=== PATIENT | female | born 1990 | race Caucasian/White ===

== ENCOUNTER 2016-05-14 12:17 | Emergency (ER) | payer MEDICAID ==
[2016-05-14 13:31] LABS: BASOPHILS 0.2 % (0.0-2.0); EOSINOPHILS 3.4 % (0-7); HEMATOCRIT 42.7 % (36.0-48.0); HEMOGLOBIN 14.6 g/dL (12-16); IMMATURE GRANULOCYTES 0.5 % (0-5); LYMPHOCYTES 51.4 % (15-50); MCH 32.4 pg (26.0-34.0); MCHC 34.2 g/dL (31.0-37.0); MCV 94.7 fL (80.0-100.0); MEAN PLATELET VOLUME 11.9 fL (7.4-10.4); MONOCYTES 4.9 % (2-11); NEUTROPHILS 39.6 % (40-80); PLATELET COUNT 181 10x3/uL (130-400); RBC 4.51 10x6/uL (4.00-5.40); RDW 13.6 % (11.5-14.5)
[2016-05-14 13:45] LABS: APPEARANCE HAZY (CLEAR); BILIRUBIN NEGATIVE (NEGATIVE); COLOR YELLOW (YELLOW); GLUCOSE NEGATIVE (NEGATIVE); KETONE NEGATIVE (NEGATIVE); LEUKOCYTE ESTERASE 1+ (NEGATIVE); NITRITE POSITIVE (NEGATIVE); PROTEIN NEGATIVE (NEGATIVE); UROBILINOGEN NORMAL (NORMAL)
[2016-05-14 13:46] LABS: BACTERIA MANY /hpf (NONE SEEN); MUCUS <1+ /lpf (NONE SEEN)
[2016-05-14 13:47] LABS: HCG SERUM NEGATIVE (NEGATIVE)
[2016-05-14 13:53] LABS: ALBUMIN 3.8 g/dL (3.4-5.0); ALKALINE PHOSPHATASE 67 U/L (46-116); ALT (SGPT) 20 U/L (10-68); AMYLASE - SERUM 54 U/L (25-115); BILIRUBIN - TOTAL 0.35 mg/dL (0.2-1.3); CALC OSMOLALITY 281 mosm/kg (275-300); CALCIUM 8.7 mg/dL (8.5-10.1); CARBON DIOXIDE 27.3 mmol/L (21.0-32.0); CHLORIDE - SERUM 108 mmol/L (98-107); CREATININE - SERUM 0.7 mg/dL (0.6-1.3); GLUCOSE 79 mg/dL (74-106); LIPASE 180 U/L (73-393); PROTEIN - SERUM 6.5 g/dL (6.4-8.2); SODIUM 143 mmol/L (136-145); UREA NITROGEN 6 mg/dL (7-18); eGFR NON AFRICAN AMERICAN > 90 mL/min (90-120)
== END 2016-05-14 16:50 | disposition home or self-care (01) ==
LOC: D.ER 12:17
PROVIDERS: Family Medicine
DX: R10.9 Unspecified abdominal pain (principal); N12 Tubulo-interstitial nephritis, not specified as acute or chronic; R11.0 Nausea; F17.200 Nicotine dependence, unspecified, uncomplicated

== ENCOUNTER 2016-07-25 11:27 | Emergency (ER) | payer MEDICAID ==
[2016-07-25 12:05] LABS: HCG URINE POSITIVE (NEGATIVE)
[2016-07-25 12:27] LABS: APPEARANCE HAZY (CLEAR); BACTERIA MODERATE /hpf (NONE SEEN); BILIRUBIN NEGATIVE (NEGATIVE); COLOR YELLOW (YELLOW); EPITHELIAL CELLS 0-5 /hpf (0-5); GLUCOSE NEGATIVE (NEGATIVE); GRANULAR CAST NONE SEEN /lpf (NONE SEEN); HYALINE CAST NONE SEEN /lpf (NONE SEEN); KETONE NEGATIVE (NEGATIVE); LEUKOCYTE ESTERASE 2+ (NEGATIVE); MUCUS >1+ /lpf (NONE SEEN); NITRITE NEGATIVE (NEGATIVE); PH 7.5 (5.0-6.0); PROTEIN 1+ mg/dL (NEGATIVE); RED CELL CAST NONE SEEN /lpf (NONE SEEN); RED CELLS - URINE OCC /hpf (0-5); SPECIFIC GRAVITY 1.005 (1.005-1.020); SPERMATOZOA NONE SEEN /hpf (NONE SEEN); UROBILINOGEN NORMAL (NORMAL); WHITE CELLS - URINE 0-5 /hpf (0-5); YEAST NONE SEEN /hpf (NONE SEEN)
[2016-07-25 12:28] LABS: AMORPHOUS SEDIMENT >1+ /lpf (NONE SEEN); WAXY CAST NONE SEEN /lpf (NONE SEEN)
[2016-07-25 12:42] LABS: BASOPHILS 0.4 % (0-2); EOSINOPHILS 1.8 % (0-7); HEMATOCRIT 44.5 % (36.0-48.0); HEMOGLOBIN 15.3 g/dL (12-16); IMMATURE GRANULOCYTES 0.4 % (0-5); LYMPHOCYTES 23.5 % (15-50); MCH 31.5 pg (26.0-34.0); MCHC 34.4 g/dL (31.0-37.0); MCV 91.6 fL (80.0-100.0); MEAN PLATELET VOLUME 10.7 fL (7.4-10.4); MONOCYTES 5.6 % (2-11); NEUTROPHILS 68.3 % (40-80); PLATELET COUNT 226 10x3/uL (130-400); RBC 4.86 10x6/uL (4.00-5.40); RDW 12.6 % (11.5-14.5); WBC 8.2 10x3/uL (4.8-10.8)
[2016-07-25 12:57] LABS: ALBUMIN 3.9 g/dL (3.4-5.0); ALKALINE PHOSPHATASE 77 U/L (46-116); ALT (SGPT) 18 U/L (10-68); BILIRUBIN - TOTAL 0.38 mg/dL (0.2-1.3); CALC OSMOLALITY 273 mosm/kg (275-300); CALCIUM 8.5 mg/dL (8.5-10.1); CARBON DIOXIDE 28.4 mmol/L (21.0-32.0); CHLORIDE - SERUM 103 mmol/L (98-107); CREATININE - SERUM 0.6 mg/dL (0.6-1.3); GLUCOSE 95 mg/dL (74-106); POTASSIUM - SERUM 3.6 mmol/L (3.5-5.1); PROTEIN - SERUM 7.5 g/dL (6.4-8.2); SODIUM 138 mmol/L (136-145); UREA NITROGEN 6 mg/dL (7-18); eGFR NON AFRICAN AMERICAN > 90 mL/min (90-120)
[2016-07-25 13:20] LABS: HCG - QUANTITATIVE (MATERNAL) 1192 mIU/mL
[2016-07-25 15:27] LABS: UDS - AMPHET NEGATIVE QUAL (NEGATIVE); UDS - BARB NEGATIVE QUAL (NEGATIVE); UDS - BENZO NEGATIVE QUAL (NEGATIVE); UDS - COCAINE NEGATIVE QUAL (NEGATIVE); UDS - METH NEGATIVE QUAL (NEGATIVE); UDS - OPIATE NEGATIVE QUAL (NEGATIVE); UDS - PCP NEGATIVE QUAL (NEGATIVE); UDS - THC POSITIVE QUAL (NEGATIVE)
== END 2016-07-25 13:28 | disposition home or self-care (01) ==
LOC: D.ER 11:27
PROVIDERS: Family Medicine
DX: S16.1XXA Strain of muscle, fascia and tendon at neck level, initial encounter (principal); X58.XXXA Exposure to other specified factors, initial encounter; Y93.89 Activity, other specified; Y92.019 Unspecified place in single-family (private) house as the place of occurrence of the external cause; O02.81 Inappropriate change in quantitative human chorionic gonadotropin (hCG) in early pregnancy

== ENCOUNTER 2016-09-26 10:42 | Emergency (ER) | payer MEDICAID ==
[2016-09-26 13:00] LABS: BASOPHILS 0.4 % (0-2); EOSINOPHILS 4.5 % (0-7); HEMATOCRIT 48.7 % (36.0-48.0); HEMOGLOBIN 16.5 g/dL (12-16); IMMATURE GRANULOCYTES 0.4 % (0-5); LYMPHOCYTES 31.7 % (15-50); MCH 32.3 pg (26.0-34.0); MCHC 33.9 g/dL (31.0-37.0); MCV 95.3 fL (80.0-100.0); MEAN PLATELET VOLUME 11.7 fL (7.4-10.4); MONOCYTES 6.2 % (2-11); NEUTROPHILS 56.8 % (40-80); PLATELET COUNT 203 10x3/uL (130-400); RBC 5.11 10x6/uL (4.00-5.40); RDW 13.6 % (11.5-14.5); WBC 7.7 10x3/uL (4.8-10.8)
[2016-09-26 13:06] LABS: APPEARANCE HAZY (CLEAR); BILIRUBIN NEGATIVE (NEGATIVE); COLOR YELLOW (YELLOW); GLUCOSE NEGATIVE (NEGATIVE); KETONE NEGATIVE (NEGATIVE); LEUKOCYTE ESTERASE 2+ (NEGATIVE); NITRITE NEGATIVE (NEGATIVE); PROTEIN NEGATIVE (NEGATIVE); UROBILINOGEN NORMAL (NORMAL)
[2016-09-26 13:14] LABS: BACTERIA MODERATE /hpf (NONE SEEN); RED CELLS - URINE 0-5 /hpf (0-5); WHITE CELLS - URINE 25-50 /hpf (0-5)
[2016-09-26 13:15] LABS: ALBUMIN 4.5 g/dL (3.4-5.0); ALKALINE PHOSPHATASE 69 U/L (46-116); ALT (SGPT) 21 U/L (10-68); BILIRUBIN - TOTAL 0.54 mg/dL (0.2-1.3); CALC OSMOLALITY 269 mosm/kg (275-300); CALCIUM 9.3 mg/dL (8.5-10.1); CARBON DIOXIDE 27.1 mmol/L (21.0-32.0); CHLORIDE - SERUM 103 mmol/L (98-107); CREATININE - SERUM 0.8 mg/dL (0.6-1.3); GLUCOSE 88 mg/dL (74-106); POTASSIUM - SERUM 4.2 mmol/L (3.5-5.1); PROTEIN - SERUM 8.1 g/dL (6.4-8.2); SODIUM 136 mmol/L (136-145); UREA NITROGEN 9 mg/dL (7-18); eGFR NON AFRICAN AMERICAN > 90 mL/min (90-120)
[2016-09-26 13:22] LABS: HCG - QUANTITATIVE (MATERNAL) 2 mIU/mL
== END 2016-09-26 15:49 | disposition home or self-care (01) ==
LOC: D.ER 10:42
PROVIDERS: Emergency Medicine
DX: N39.0 Urinary tract infection, site not specified (principal); R10.2 Pelvic and perineal pain; F17.200 Nicotine dependence, unspecified, uncomplicated

== ENCOUNTER 2016-12-23 10:06 | Emergency (ER) | payer MEDICAID ==
[2016-12-23 12:09] LABS: BASOPHILS 0.1 % (0-2); EOSINOPHILS 2.9 % (0-7); HEMATOCRIT 42.7 % (36.0-48.0); IMMATURE GRANULOCYTES 0.3 % (0-5); LYMPHOCYTES 26.4 % (15-50); MCHC 35.1 g/dL (31.0-37.0); MCV 93.8 fL (80.0-100.0); MEAN PLATELET VOLUME 11.7 fL (7.4-10.4); NEUTROPHILS 65.3 % (40-80); PLATELET COUNT 181 10x3/uL (130-400); RBC 4.55 10x6/uL (4.00-5.40); RDW 12.7 % (11.5-14.5); WBC 7.3 10x3/uL (4.8-10.8)
[2016-12-23 12:40] LABS: APPEARANCE HAZY (CLEAR); BACTERIA MANY /hpf (NONE SEEN); BILIRUBIN NEGATIVE (NEGATIVE); COLOR YELLOW (YELLOW); EPITHELIAL CELLS 0-5 /hpf (0-5); GLUCOSE NEGATIVE (NEGATIVE); KETONE NEGATIVE (NEGATIVE); LEUKOCYTE ESTERASE 2+ (NEGATIVE); MUCUS <1+ /lpf (NONE SEEN); NITRITE NEGATIVE (NEGATIVE); PROTEIN NEGATIVE (NEGATIVE); RED CELLS - URINE RARE /hpf (0-5); SPECIFIC GRAVITY 1.005 (1.005-1.020); UROBILINOGEN NORMAL (NORMAL); WHITE CELLS - URINE 0-5 /hpf (0-5)
== END 2016-12-23 15:29 | disposition home or self-care (01) ==
LOC: D.ER 10:06
PROVIDERS: Emergency Medicine
DX: A59.9 Trichomoniasis, unspecified (principal); F17.200 Nicotine dependence, unspecified, uncomplicated

== ENCOUNTER 2017-01-03 11:39 | Emergency (ER) | payer MEDICAID | END 2017-01-03 15:59 | disposition home or self-care (01) | LOC: D.ER 11:39 | DX: M54.12 Radiculopathy, cervical region (principal); F17.200 Nicotine dependence, unspecified, uncomplicated ==

== ENCOUNTER 2018-01-25 17:14 | Emergency (ER) | payer MEDICAID ==
[~2018-01-25] VITALS: Ht 162.6 cm; Wt 59.1 kg
[2018-01-25 17:18] VITALS: Ht 162.6 cm; Wt 59.1 kg
[2018-01-25 19:15] LABS: BASOPHILS 0.2 % (0-2); EOSINOPHILS 1.3 % (0-7); IMMATURE GRANULOCYTES 0.4 % (0-5); LYMPHOCYTES 22.8 % (15-50); MCH 32.8 pg (26.0-34.0); MCHC 35.9 g/dL (31.0-37.0); MCV 91.3 fL (80.0-100.0); MEAN PLATELET VOLUME 11.3 fL (7.4-10.4); MONOCYTES 5.2 % (2-11); NEUTROPHILS 70.1 % (40-80); PLATELET COUNT 204 10x3/uL (130-400); RBC 4.27 10x6/uL (4.00-5.40); RDW 12.9 % (11.5-14.5)
[2018-01-25 19:43] LABS: APPEARANCE CLEAR (CLEAR); BILIRUBIN NEGATIVE (NEGATIVE); COLOR YELLOW (YELLOW); GLUCOSE NEGATIVE (NEGATIVE); KETONE MODERATE mg/dL (NEGATIVE); NITRITE NEGATIVE (NEGATIVE); PROTEIN NEGATIVE (NEGATIVE); SPECIFIC GRAVITY 1.015 (1.005-1.020); UROBILINOGEN NORMAL (NORMAL)
[2018-01-25 19:45] LABS: ALBUMIN 3.7 g/dL (3.4-5.0); ALKALINE PHOSPHATASE 54 U/L (46-116); ALT (SGPT) 19 U/L (10-68); CALC OSMOLALITY 271 mosm/kg (275-300); CALCIUM 8.4 mg/dL (8.5-10.1); CARBON DIOXIDE 25.1 mmol/L (21.0-32.0); CHLORIDE - SERUM 104 mmol/L (98-107); CREATININE - SERUM 0.6 mg/dL (0.6-1.3); GLUCOSE 85 mg/dL (74-106); POTASSIUM - SERUM 3.5 mmol/L (3.5-5.1); PROTEIN - SERUM 6.9 g/dL (6.4-8.2); SODIUM 138 mmol/L (136-145); UREA NITROGEN 3 mg/dL (7-18); eGFR NON AFRICAN AMERICAN > 90 mL/min (90-120)
[2018-01-25 20:08] LABS: HCG - QUANTITATIVE (MATERNAL) 78060 mIU/mL
[2018-01-25] MEDS ORDERED: ZOFRAN ODT4 MG/UDTAB PO (20:55)
[2018-01-25 21:31] VITALS: BP 114/73
== END 2018-01-25 21:34 | disposition home or self-care (01) ==
LOC: D.ER 17:14
PROVIDERS: Emergency Medicine
DX: O21.9 Vomiting of pregnancy, unspecified (principal); Z3A.08 8 weeks gestation of pregnancy; F41.9 Anxiety disorder, unspecified; E86.0 Dehydration

== ENCOUNTER → 2018-03-26 13:07 | Outpatient (CLI) | payer MEDICAID ==
[2018-01-25 17:18] VITALS: BMI 22.3
[~2018-03-26 13:07] MED LIST: ZOFRAN ODT4 MG/UDTAB PO
== END | disposition home or self-care (01) ==
LOC: D.LDO 13:07
DX: O26.892 Other specified pregnancy related conditions, second trimester (principal); Z3A.17 17 weeks gestation of pregnancy; W01.0XXA Fall on same level from slipping, tripping and stumbling without subsequent striking against object, initial encounter; Y93.89 Activity, other specified; Y92.019 Unspecified place in single-family (private) house as the place of occurrence of the external cause; R10.9 Unspecified abdominal pain; M25.552 Pain in left hip

== ENCOUNTER 2018-04-18 17:51 | Outpatient (CLI) | payer MEDICAID ==
[2018-01-25 17:18] VITALS: BMI 22.3
[2018-04-18 19:52] LABS: APPEARANCE CLEAR (CLEAR); BILIRUBIN NEGATIVE (NEGATIVE); COLOR YELLOW (YELLOW); GLUCOSE NEGATIVE (NEGATIVE); KETONE NEGATIVE (NEGATIVE); NITRITE NEGATIVE (NEGATIVE); PROTEIN NEGATIVE (NEGATIVE); SPECIFIC GRAVITY 1.025 (1.005-1.020); UROBILINOGEN NORMAL (NORMAL)
[2018-04-18 19:53] LABS: BACTERIA MANY /hpf (NONE SEEN); RED CELLS - URINE OCC /hpf (0-5); WHITE CELLS - URINE 0-5 /hpf (0-5)
[2018-04-18 20:03] LABS: UDS - AMPHET NEGATIVE QUAL (NEGATIVE); UDS - BARB NEGATIVE QUAL (NEGATIVE); UDS - BENZO NEGATIVE QUAL (NEGATIVE); UDS - COCAINE NEGATIVE QUAL (NEGATIVE); UDS - OPIATE NEGATIVE QUAL (NEGATIVE); UDS - PCP NEGATIVE QUAL (NEGATIVE); UDS - THC POSITIVE QUAL (NEGATIVE)
== END 2018-04-18 20:48 | disposition home or self-care (01) ==
LOC: D.LABREF 17:51
PROVIDERS: Obstetrics & Gynecology
DX: O26.892 Other specified pregnancy related conditions, second trimester (principal); Z3A.21 21 weeks gestation of pregnancy

== ENCOUNTER → 2018-05-19 17:19 | Outpatient (CLI) | payer MEDICAID ==
[2018-01-25 17:18] VITALS: BMI 22.3
[2018-05-19 18:00] LABS: APPEARANCE CLEAR (CLEAR); BILIRUBIN NEGATIVE (NEGATIVE); COLOR YELLOW (YELLOW); GLUCOSE NEGATIVE (NEGATIVE); KETONE MODERATE mg/dL (NEGATIVE); NITRITE NEGATIVE (NEGATIVE); PROTEIN NEGATIVE (NEGATIVE); SPECIFIC GRAVITY 1.015 (1.005-1.020); UROBILINOGEN NORMAL (NORMAL)
[2018-05-19 18:07] LABS: BASOPHILS 0.2 % (0-2); HEMATOCRIT 36.3 % (36.0-48.0); HEMOGLOBIN 12.7 g/dL (12-16); MCH 32.6 pg (26.0-34.0); MCV 93.1 fL (80.0-100.0); MONOCYTES 6.7 % (2-11); NEUTROPHILS 71.1 % (40-80); PLATELET COUNT 196 10x3/uL (130-400); RDW 12.9 % (11.5-14.5); WBC 9.1 10x3/uL (4.8-10.8)
== END | disposition home or self-care (01) ==
LOC: D.LDO 17:19
PROVIDERS: Obstetrics & Gynecology
DX: O26.899 Other specified pregnancy related conditions, unspecified trimester (principal); Z3A.00 Weeks of gestation of pregnancy not specified

== ENCOUNTER 2018-07-10 22:41 | Observation (INO) | payer MEDICAID ==
[2018-01-25 17:18] VITALS: BMI 22.3
[2018-07-11 00:11] LABS: INR 0.94 (0.85-1.17); PROTIME 12.1 SECONDS (11.6-15.0)
[2018-07-11 00:13] LABS: D-DIMER-QUANTITATIVE 0.56 ug/mLFEU (0.20-0.54)
[2018-07-11 00:18] LABS: UDS - AMPHET NEGATIVE QUAL (NEGATIVE); UDS - BARB NEGATIVE QUAL (NEGATIVE); UDS - BENZO NEGATIVE QUAL (NEGATIVE); UDS - COCAINE NEGATIVE QUAL (NEGATIVE); UDS - OPIATE NEGATIVE QUAL (NEGATIVE); UDS - PCP NEGATIVE QUAL (NEGATIVE); UDS - THC POSITIVE QUAL (NEGATIVE)
[2018-07-11 00:46] LABS: BASOPHILS 0.3 % (0-2); EOSINOPHILS 2.2 % (0-7); HEMATOCRIT 34.2 % (36.0-48.0); HEMOGLOBIN 11.8 g/dL (12-16); IMMATURE GRANULOCYTES 1.3 % (0-5); LYMPHOCYTES 22.9 % (15-50); MCH 32.2 pg (26.0-34.0); MCHC 34.5 g/dL (31.0-37.0); MCV 93.2 fL (80.0-100.0); MEAN PLATELET VOLUME 11.8 fL (7.4-10.4); MONOCYTES 6.9 % (2-11); NEUTROPHILS 66.4 % (40-80); PLATELET COUNT 187 10x3/uL (130-400); RBC 3.67 10x6/uL (4.00-5.40); RDW 13.1 % (11.5-14.5); WBC 9.6 10x3/uL (4.8-10.8)
[2018-07-11 00:48] LABS: APPEARANCE HAZY (CLEAR); BILIRUBIN NEGATIVE (NEGATIVE); COLOR YELLOW (YELLOW); GLUCOSE NEGATIVE (NEGATIVE); KETONE NEGATIVE (NEGATIVE); NITRITE NEGATIVE (NEGATIVE); PROTEIN NEGATIVE (NEGATIVE); SPECIFIC GRAVITY 1.015 (1.005-1.020); UROBILINOGEN NORMAL (NORMAL); WHITE CELLS - URINE RARE /hpf (0-5)
[2018-07-11 00:49] LABS: BACTERIA FEW /hpf (NONE SEEN); EPITHELIAL CELLS OCC /hpf (0-5)
== END 2018-07-11 02:47 | disposition home or self-care (01) ==
LOC: D.LD 22:41 → OBSVTIME 22:45 → D.LD 07-11 02:47
PROVIDERS: ADMIT Obstetrics & Gynecology; ATTEND Obstetrics & Gynecology
DX: O46.8X3 Other antepartum hemorrhage, third trimester (principal); Z3A.35 35 weeks gestation of pregnancy; O35.8XX0 Maternal care for other (suspected) fetal abnormality and damage, not applicable or unspecified

== ENCOUNTER → 2018-08-09 17:51 | Outpatient (CLI) | payer MEDICAID ==
[2018-01-25 17:18] VITALS: BMI 22.3
[2018-08-09 18:11] LABS: APPEARANCE CLEAR (CLEAR); BILIRUBIN NEGATIVE (NEGATIVE); COLOR YELLOW (YELLOW); GLUCOSE NEGATIVE (NEGATIVE); KETONE MODERATE mg/dL (NEGATIVE); NITRITE NEGATIVE (NEGATIVE); PROTEIN NEGATIVE (NEGATIVE); SPECIFIC GRAVITY 1.015 (1.005-1.020); UROBILINOGEN NORMAL (NORMAL)
[2018-08-09 21:29] LABS: APPEARANCE CLEAR (CLEAR); COLOR YELLOW (YELLOW); NITRITE NEGATIVE (NEGATIVE); PROTEIN NEGATIVE (NEGATIVE); SPECIFIC GRAVITY 1.015 (1.005-1.020)
[2018-08-09 21:31] LABS: BILIRUBIN NEGATIVE (NEGATIVE); GLUCOSE 1000 mg/dL (NEGATIVE); KETONE NEGATIVE (NEGATIVE); UROBILINOGEN NORMAL (NORMAL)
== END | disposition home or self-care (01) ==
LOC: D.LDO 17:51
PROVIDERS: Obstetrics & Gynecology; ATTEND Obstetrics & Gynecology
DX: O26.899 Other specified pregnancy related conditions, unspecified trimester (principal); Z3A.00 Weeks of gestation of pregnancy not specified

== ENCOUNTER 2018-08-25 19:59 | Inpatient (IN) | payer MEDICAID ==
[~2018-08-25] VITALS: Ht 162.6 cm; Wt 68.6 kg
[2018-08-25] MEDS ORDERED: VALTREX500 MG PO (20:50)
[2018-08-25 20:53] LABS: HEMATOCRIT 35.2 % (36.0-48.0); HEMOGLOBIN 12.2 g/dL (12-16); MCH 31.4 pg (26.0-34.0); MCHC 34.7 g/dL (31.0-37.0); MCV 90.5 fL (80.0-100.0); RBC 3.89 10x6/uL (4.00-5.40); RDW 12.6 % (11.5-14.5); WBC 13.3 10x3/uL (4.8-10.8)
[2018-08-25 21:20] LABS: UDS - AMPHET NEGATIVE QUAL (NEGATIVE); UDS - BARB NEGATIVE QUAL (NEGATIVE); UDS - BENZO NEGATIVE QUAL (NEGATIVE); UDS - COCAINE NEGATIVE QUAL (NEGATIVE); UDS - OPIATE NEGATIVE QUAL (NEGATIVE); UDS - PCP NEGATIVE QUAL (NEGATIVE); UDS - THC NEGATIVE QUAL (NEGATIVE)
[2018-08-25 21:33] VITALS: BP 138/78; Ht 162.6 cm; Wt 68.6 kg
[2018-08-27 07:30] VITALS: BP 130/78
[2018-08-27 16:11] VITALS: BP 133/81
[2018-08-27 19:37] VITALS: BP 141/79
[2018-08-28] MEDS ORDERED: CELEXA20 MG PO (07:41)
[2018-08-28] MEDS ORDERED: XANAX0.5 MG PO (07:41)
[2018-08-28 08:00] VITALS: BP 145/85
== END 2018-08-28 08:11 | disposition home or self-care (01) | DRG 807 ==
LOC: D.LD 19:59
PROVIDERS: ADMIT Obstetrics & Gynecology; ATTEND Obstetrics & Gynecology
PROC: 3E033VJ Introduction of Other Hormone into Peripheral Vein, Percutaneous Approach (ICD-10-PCS; 2018-08-25)
PROC: 10E0XZZ Delivery of Products of Conception, External Approach (ICD-10-PCS; principal; 2018-08-26)
PROC: 0HQ9XZZ Repair Perineum Skin, External Approach (ICD-10-PCS; 2018-08-26)
DX: O99.824 Streptococcus B carrier state complicating childbirth (principal); Z37.0 Single live birth; Z3A.39 39 weeks gestation of pregnancy; O70.0 First degree perineal laceration during delivery; O99.334 Smoking (tobacco) complicating childbirth; O99.344 Other mental disorders complicating childbirth; F32.9 Major depressive disorder, single episode, unspecified; F41.9 Anxiety disorder, unspecified

== ENCOUNTER 2019-07-18 09:54 | Day surgery (SDC) | payer MEDICAID ==
[2019-07-17 11:58] LABS: BASOPHILS 0.3 % (0-2); EOSINOPHILS 6.8 % (0-7); HEMATOCRIT 41.2 % (36.0-48.0); HEMOGLOBIN 13.1 g/dL (12-16); IMMATURE GRANULOCYTES 0.3 % (0-5); LYMPHOCYTES 38.3 % (15-50); MCH 31.7 pg (26.0-34.0); MCHC 31.8 g/dL (31.0-37.0); MCV 99.8 fL (80.0-100.0); MEAN PLATELET VOLUME 11.2 fL (7.4-10.4); MONOCYTES 5.8 % (2-11); NEUTROPHILS 48.5 % (40-80); PLATELET COUNT 230 10x3/uL (130-400); RBC 4.13 10x6/uL (4.00-5.40); RDW 13.8 % (11.5-14.5); WBC 6.8 10x3/uL (4.8-10.8)
[2019-07-17 12:13] LABS: CALC OSMOLALITY 276 mosm/kg (275-300); CALCIUM 7.8 mg/dL (8.5-10.1); CARBON DIOXIDE 28.1 mmol/L (21.0-32.0); CHLORIDE - SERUM 107 mmol/L (98-107); CREATININE - SERUM 0.7 mg/dL (0.6-1.3); GLUCOSE 77 mg/dL (74-106); POTASSIUM - SERUM 4.7 mmol/L (3.5-5.1); SODIUM 139 mmol/L (136-145); UREA NITROGEN 13 mg/dL (7-18); eGFR NON AFRICAN AMERICAN > 90 mL/min (90-120)
[2019-07-17 12:18] LABS: UDS - AMPHET NEGATIVE QUAL (NEGATIVE); UDS - BARB NEGATIVE QUAL (NEGATIVE); UDS - BENZO NEGATIVE QUAL (NEGATIVE); UDS - COCAINE NEGATIVE QUAL (NEGATIVE); UDS - OPIATE POSITIVE QUAL (NEGATIVE); UDS - PCP NEGATIVE QUAL (NEGATIVE); UDS - THC POSITIVE QUAL (NEGATIVE)
[2019-07-18] VITALS (7 sets, daily range): BP systolic 99–118; BP diastolic 56–74; Ht 162.6 cm; Wt 52.2 kg
[~2019-07-18] VITALS: Ht 162.6 cm; Wt 52.2 kg
--- NOTE | ~2019-07-18 | OP ---
PATIENT NAME: WILLIAM SHAH MEDICAL RECORD: [id number] :88 LOCATION:[facility] ADMISSION DATE: SURGEON: ADRIAN BERNSTEIN MD DATE OF OPERATION: 07/18/2019 DATE OF SERVICE: 07/18/2019 PREOPERATIVE DIAGNOSES: 1. Pelvic pain. 2. Menorrhagia. POSTOPERATIVE DIAGNOSES: 1. Pelvic pain. 2. Menorrhagia. PROCEDURE PERFORMED: 1. Total laparoscopic hysterectomy. 2. Bilateral salpingectomy. PRIMARY SURGEON: Adrian Bernstein MD ANESTHESIOLOGIST: Dr. Park. ANESTHESIA: General. FINDINGS: Endometriosis was noted on the right ovary. The uterus was boggy and enlarged with normal contour. Abdominal anatomy was unremarkable. Both tubes are unremarkable. SPECIMENS REMOVED: Uterus with bilateral tubes. SPECIMEN DISPOSITION: Pathology. ESTIMATED BLOOD LOSS: Less than or equal to 75 cc. URINE OUTPUT: 700 cc. FLUID: Going to be 1500 cc Lactated Ringer's. COMPLICATIONS: None. DRAIN: Multani to gravity. INDICATIONS: The patient is a 29-year-old female with menorrhagia and pelvic pain to include dyspareunia. The patient has tried conservative therapy without results. The patient desires more aggressive management of dysmenorrhea, pelvic pain and midline dyspareunia. DESCRIPTION OF PROCEDURE: After informed consent was assured, the patient was taken to the operating room where anesthetic was obtained. The patient was now prepped and draped in the usual sterile fashion. Uterine manipulator was placed and attention was now directed to the umbilicus where an incision was made and the trocar inserted. Pneumoperitoneum was developed. The patient was placed in Trendelenburg position and accessory ports were placed in the left and right lower quadrant. The left lower quadrant port was a 5 mm port. The right lower OPERATIVE REPORT [id number] WILLIAM SHAH quadrant port was an 11-mm port. Through the left lower port, a grasper was inserted. The right tube was elevated and using a coagulation cutter from the right side, the attachment of the tube to the adnexa was compressed, coagulated, and . The dissection was carried out underneath the tube to the cornual region of the uterus and the tube was removed. Tube was extracted out of the 11-mm port. The uterine ovarian ligament was now compressed, coagulated, and and dissection was carried down over the round ligament. The anterior leaf of the broad ligament was dissected down to the bladder flap. Posteriorly, the broad ligament was opened and the vessels of the right side skeletonized. The vessels were now compressed, coagulated, and at the level of the internal os. This was repeated on the patient's contralateral side. From the right, a grasper was inserted and left tube elevated. The tube was removed in similar fashion and taken from the abdomen and pelvis through the 11-mm port. Dissection was carried out over the uteroovarian and round ligaments on the left. Anterior leaf of the broad ligament was opened and the bladder flap developed. Posteriorly, the dissection was taken down and the left vascular bundle was now compressed, coagulated, and . Using a laparoscopic peanut, the bladder was further pushed down from the margin of dissection. The cup of the uterine manipulator was easily palpated. A single bite was taken on the patient's left cardinal ligament to allow the vascular bundle to move more laterally. Dissection of the uterus from the vaginal cuff now began at the 12 o'clock position. The dissection was carried from the 12-6 o'clock position on the patient's left and after mobilizing the uterine artery in similar fashion on the right, the dissection was completed in a 12 to 6 o'clock fashion. The uterus was now pulled into the vagina to maintain a pneumoperitoneum. The vaginal cuff was now closed with a 0 Stratafix suture on CT2 needle. The close begins at the right corner of the cuff and completes on the left. The Stratafix stitches pulled tight and cut flush with the peritoneum. The pelvis was irrigated and irrigant removed and adequate hemostasis has been achieved. The accessory ports were removed under direct visualization as the pneumoperitoneum was released. The primary trocar port was now removed and all sites closed with subcuticular stitch and Dermabond applied. Sponge, lap, needle counts were correct times 2. Specimen was removed from the vaginal vault and sent to pathology. TRANSINT:[id number] Voice Confirmation ID: [id number] DOCUMENT ID: [id number] ADRIAN BERNSTEIN MD CC: [id number] DICTATION DATE: 07/25/19 1627 [employer]LLING FI[employer] PROFESSIONAL: 07/25/191921 [facility] [place] 07/18/19 [address] [address] [place] [address]
--- NOTE | 2019-07-18 06:29 | NUR ---
DR BAKER NOTIFIED OF PT's BEHAVIOR AND ASSESSMENT RESULTS, PT IS A LOW RISK PER DR BAKER. DR BAKER STATED TO GIVE RESOURCES TO PT AT TIME OF DISCHARGE. NO FURTHER ORDERS AT THIS TIME. RESOURCES REVIEWED WITH PT AND SHE VERBALIZED UNDERSTANDING.
[2019-07-18 06:37] LABS: HCG URINE NEGATIVE (NEGATIVE)
[~2019-07-18 09:54] MED LIST changes: +CELEXA20 MG PO; +HYDROCODON-ACE1 EAC7 PO; +VALTREX500 MG PO; +XANAX0.5 MG PO
--- NOTE | 2019-07-18 10:05 | NUR ---
RECEIVED PATIENT VIA BED ACCOMPANIED BY PACU STAFF, AWAKE BUT GROGGY, ORIENTED X3. IV INFUSING TO LEFT AC. STARKS CATH DRAINING LIGHT CLEAR YELLOW URINE TO GRAVITY. 3 LAPROSCOPIC INCISIONS ON ABDOMEN-ONE TO RIGHT LOWER ABDOMEN, ONE TO LEFT LOWER ABDOMEN, 1 TO UMBILICUS; ALL CDI WITH DERMABOND; NO DRAINAGE NOTED. IV PLACED TO PUMP AT 125CC/HR.
--- NOTE | 2019-07-18 10:50 | NUR ---
DR. BERNSTEIN CALLS TO UNIT, TELEPHONE ORDER RECEIVED TO NORMALIZE PT, D/C STARKS CATH NOW, ADVANCE DIET TO REGULAR TOLERATED, WHEN PT IS TOLERATING DIET, AND HAS VOIDED, AUGUST D/C HOME. REPORT GIVEN TO SUSY YUEN RN.
--- NOTE | 2019-07-18 11:05 | NUR ---
APPLE JUICE GIVEN. STARKS BULB DEFLATED AND CATHETER D/C'D INTACT.
--- NOTE | 2019-07-18 11:45 | NUR ---
THIS NURSE TO ROOM TO EVALUATE PT. PT DROWSY BUT EASILY RESPONDS TO NAME BEING CALLED. IV LR LR INFUSING INTO LT ACS AT 125CC/HR.
--- NOTE | 2019-07-18 11:46 | NUR ---
UP TO BATHROOM TO VOID.
--- NOTE | 2019-07-18 11:48 | NUR ---
UNABLE TO VOID AT THIS TIME- RETURNS TO BED.
--- NOTE | 2019-07-18 11:51 | NUR ---
RATES PAIN A 10 ON SCALE OF 0-10. REQUESTING PAIN MEDICATION. LAP INCISIONS X3 WNL. PT SIPPING ON APPLE JUICE.
--- NOTE | 2019-07-18 12:28 | NUR ---
REG DIET SERVED. SITTING UP IN BED EATING DIET.
--- NOTE | 2019-07-18 12:45 | NUR ---
AMBULATED TO BATHROOM WITH THIS NURSE AT SIDE; SLOW BUT STEADY GATE. NO DIZZINESS OR LIGHTHEADEDNESS. VOIDED 450CC CLEAR LIGHT YELLOW URINE. ASSISTED BACK TO BED WITHOUT DIFFICULTY. TOLERATED AMBULATION WELL.
--- NOTE | 2019-07-18 13:00 | NUR ---
IV D/C'D. CATHETER INTACT; PRESSURE APPLIED. NO BLEEDING NOTED. BANDAGE APPLIED TO SITE.
--- NOTE | 2019-07-18 13:30 | NUR ---
TOLERATING REGULAR DIET WITHOUT NAUSEA.
--- NOTE | 2019-07-18 13:50 | NUR ---
DR. BERNSTEIN HERE TO SEE PATIENT.
[2019-07-18] MEDS ORDERED: NEURONTIN600 MG PO (13:56)
[2019-07-18] MEDS ORDERED: MOBIC7.5 MG PO (13:57)
[2019-07-18] MEDS ORDERED: PERCOCET 7.5/321 TAB PO (13:58)
--- NOTE | 2019-07-18 14:30 | NUR ---
REVIEWED DISCHARGE INSTRUCTIONS WITH PATIENT. STATES UNDERSTANDING. PRESCRIPTIONS AND FOLLOW-UP APPOINTMENT GIVEN.
--- NOTE | 2019-07-18 15:00 | NUR ---
DISCHARGED HOME VIA WHEELCHAIR TO PRIVATE VEHICLE ACCOMPANIED BY THIS NURSE.
== END 2019-07-18 15:10 | disposition home or self-care (01) ==
LOC: D.PAN 09:54 → D.LD 09:57 → D.PAN 15:10
PROVIDERS: ATTEND Obstetrics & Gynecology
DX: R10.2 Pelvic and perineal pain (principal); N92.0 Excessive and frequent menstruation with regular cycle; N94.10 Unspecified dyspareunia; R63.4 Abnormal weight loss; R87.619 Unspecified abnormal cytological findings in specimens from cervix uteri

== ENCOUNTER 2019-07-22 16:12 | Observation (INO) | payer MEDICAID ==
[~2019-07-22] VITALS: Ht 162.6 cm; Wt 50.0 kg
[~2019-07-22 16:12] MED LIST changes: +MOBIC7.5 MG PO; +NEURONTIN600 MG PO; +PERCOCET 7.5/321 TAB PO
[2019-07-22 16:48] LABS: CALC OSMOLALITY 268 mosm/kg (275-300); CALCIUM 8.7 mg/dL (8.5-10.1); CARBON DIOXIDE 31.7 mmol/L (21.0-32.0); CHLORIDE - SERUM 100 mmol/L (98-107); CREATININE - SERUM 0.7 mg/dL (0.6-1.3); GLUCOSE 109 mg/dL (74-106); POTASSIUM - SERUM 4.2 mmol/L (3.5-5.1); SODIUM 135 mmol/L (136-145); UREA NITROGEN 8 mg/dL (7-18); eGFR NON AFRICAN AMERICAN > 90 mL/min (90-120)
[2019-07-22 16:49] LABS: APTT 30.7 SECONDS (22.8-39.4); INR 0.91 (0.85-1.17); PROTIME 12.3 SECONDS (11.6-15.0)
[2019-07-22 16:50] LABS: BASOPHILS 0.1 % (0-2); EOSINOPHILS 1.6 % (0-7); HEMOGLOBIN 13.9 g/dL (12-16); IMMATURE GRANULOCYTES 0.3 % (0-5); MCH 31.4 pg (26.0-34.0); MCHC 32.3 g/dL (31.0-37.0); MCV 97.1 fL (80.0-100.0); MEAN PLATELET VOLUME 10.7 fL (7.4-10.4); MONOCYTES 4.3 % (2-11); NEUTROPHILS 84.7 % (40-80); PLATELET COUNT 246 10x3/uL (130-400); RBC 4.43 10x6/uL (4.00-5.40); RDW 13.3 % (11.5-14.5); WBC 13.5 10x3/uL (4.8-10.8)
[2019-07-22 16:51] LABS: BILIRUBIN NEGATIVE (NEGATIVE); GLUCOSE NEGATIVE (NEGATIVE); KETONE NEGATIVE (NEGATIVE); NITRITE NEGATIVE (NEGATIVE); UROBILINOGEN NORMAL (NORMAL)
[2019-07-22 17:14] LABS: ALBUMIN 3.3 g/dL (3.4-5.0); ALKALINE PHOSPHATASE 69 U/L (30-120); ALT (SGPT) 17 U/L (10-68); CKMB 0.4 U/L (0.0-3.6); CREATINE KINASE 45 UL (21-215); PROTEIN - SERUM 7.2 g/dL (6.4-8.2)
[2019-07-22 17:21] LABS: TROPONIN-I < 0.017 ng/mL (0.000-0.060)
[2019-07-22 18:01] VITALS: BP 121/76
[2019-07-22 19:15] VITALS: BP 118/73
[2019-07-22 20:21] VITALS: BP 121/70
[2019-07-23 03:57] VITALS: BP 128/71; Ht 162.6 cm; Wt 50.0 kg
[2019-07-23 05:16] VITALS: BP 94/49
[2019-07-23 07:38] VITALS: BP 110/63
[2019-07-23 12:30] VITALS: BP 125/78
== END 2019-07-23 17:19 | disposition home or self-care (01) ==
LOC: D.ER 16:12 → D.MS 20:42 → D.M2 20:42 → OBSVTIME 20:51 → D.MS 21:10
PROVIDERS: Family Medicine; ADMIT Student in an Organized Health Care Education/Training Program; ATTEND Student in an Organized Health Care Education/Training Program
DX: G89.18 Other acute postprocedural pain (principal)

== ENCOUNTER 2019-12-01 15:29 | Emergency (ER) | payer MEDICAID ==
[~2019-12-01] VITALS: Ht 162.6 cm; Wt 48.4 kg
[2019-12-01 15:35] VITALS: Ht 162.6 cm; Wt 48.4 kg
[2019-12-01 16:05] LABS: BACTERIA MODERATE /hpf (NONE SEEN); BILIRUBIN NEGATIVE (NEGATIVE); EPITHELIAL CELLS 0-5 /hpf (0-5); KETONE NEGATIVE (NEGATIVE); NITRITE NEGATIVE (NEGATIVE); RED CELLS - URINE NONE SEEN /hpf (0-5); UROBILINOGEN NORMAL (NORMAL); WHITE CELLS - URINE NSEEN /hpf (0-5)
[2019-12-01 16:11] LABS: BASOPHILS 0.3 % (0-2); EOSINOPHILS 1.7 % (0-7); HEMATOCRIT 41.1 % (36.0-48.0); HEMOGLOBIN 14.1 g/dL (12-16); IMMATURE GRANULOCYTES 0.1 % (0-5); LYMPHOCYTES 32.6 % (15-50); MCH 32.1 pg (26.0-34.0); MCHC 34.3 g/dL (31.0-37.0); MCV 93.6 fL (80.0-100.0); MEAN PLATELET VOLUME 10.3 fL (7.4-10.4); MONOCYTES 7.1 % (2-11); NEUTROPHILS 58.2 % (40-80); PLATELET COUNT 281 10x3/uL (130-400); RBC 4.39 10x6/uL (4.00-5.40); RDW 13.1 % (11.5-14.5); WBC 7.2 10x3/uL (4.8-10.8)
[2019-12-01 16:12] LABS: UDS - AMPHET POSITIVE QUAL (NEGATIVE); UDS - BARB NEGATIVE QUAL (NEGATIVE); UDS - BENZO POSITIVE QUAL (NEGATIVE); UDS - COCAINE NEGATIVE QUAL (NEGATIVE); UDS - OPIATE POSITIVE QUAL (NEGATIVE); UDS - PCP NEGATIVE QUAL (NEGATIVE); UDS - THC POSITIVE QUAL (NEGATIVE)
[2019-12-01 16:26] LABS: CALC OSMOLALITY 273 mosm/kg (275-300); CALCIUM 8.7 mg/dL (8.5-10.1); CARBON DIOXIDE 27.2 mmol/L (21.0-32.0); CHLORIDE - SERUM 103 mmol/L (98-107); CREATININE - SERUM 0.9 mg/dL (0.6-1.3); GLUCOSE 94 mg/dL (74-106); POTASSIUM - SERUM 3.9 mmol/L (3.5-5.1); SODIUM 137 mmol/L (136-145); UREA NITROGEN 13 mg/dL (7-18); eGFR NON AFRICAN AMERICAN 78 mL/min (90-120)
[2019-12-01 16:30] LABS: ALBUMIN 3.9 g/dL (3.4-5.0); ALKALINE PHOSPHATASE 66 U/L (30-120); ALT (SGPT) 25 U/L (10-68); BILIRUBIN - TOTAL 0.36 mg/dL (0.2-1.3); HCG SERUM NEGATIVE (NEGATIVE); PROTEIN - SERUM 7.2 g/dL (6.4-8.2)
--- NOTE | 2019-12-01 16:31 | NUR ---
According to the suicide assessment the patient scores high for suicide and she will require a 1:1 observation. A suicide flyer and a safety plan provided.
[2019-12-01 19:05] VITALS: BP 122/64
== END 2019-12-01 19:34 ==
LOC: D.ER 15:29
PROVIDERS: Family Medicine
DX: R45.851 Suicidal ideations (principal); K21.9 Gastro-esophageal reflux disease without esophagitis